=== PATIENT | female | born 1960 | race Caucasian/White ===

== ENCOUNTER → 2017-01-27 | Outpatient (REF) | payer OTHER | LOC: M LAB REF 12:32 | PROVIDERS: ATTEND Nurse Practitioner Adult Health | DX: L03.011 Cellulitis of right finger (principal) ==

== ENCOUNTER → 2017-05-19 | Outpatient (CLI) | payer BC, OTHER ==
[2017-05-19 14:23] LABS: BASO # 0.1 10^3/uL (0.0-0.2); BASO % 1.3 % (0.0-1.0); EOS # 0.1 10^3/uL (0.0-0.50); EOS % 1.7 % (0.0-3.0); HEMATOCRIT 45.3 % (36.0-47.0); HEMOGLOBIN 15.3 g/dl (12.0-16.0); IMMATURE GRANULOCYTE % 0.6 % (0-3.0); LYMPH # 1.6 10^3/uL (1.5-4.5); LYMPH % 33.5 % (24.0-44.0); MEAN CORPUSCULAR HEMOGLOBIN 30.5 pg (27.0-33.0); MEAN CORPUSCULAR HGB CONC 33.8 g/dl (32.0-36.5); MEAN CORPUSCULAR VOLUME 90.4 fl (80.0-96.0); MONO # 0.7 10^3/uL (0.0-0.8); MONO % 14.2 % (0.0-5.0); NEUTROPHILS # 2.3 10^3/uL (1.8-7.7); NEUTROPHILS % 48.7 % (36.0-66.0); PLATELET COUNT, AUTOMATED 265 10^3/uL (150-450); RED BLOOD COUNT 5.01 10^6/uL (4.00-5.40); RED CELL DISTRIBUTION WIDTH 12.4 % (11.5-14.5); WHITE BLOOD COUNT 4.7 10^3/uL (4.0-10.0)
== END ==
LOC: M WUC 09:34
DX: J20.9 Acute bronchitis, unspecified (principal); R50.9 Fever, unspecified
CPT/HCPCS: 85025

== ENCOUNTER → 2017-12-04 | Outpatient (REF) | payer OTHER ==
[2017-12-04 18:33] LABS: BACTERIA, URINE AUTO NEGATIVE (NEGATIVE); MUCUS, URINE SMALL (NEGATIVE); RBC, URINE AUTO 7 /HPF (0-3); SQUAMOUS EPITHELIAL CELL UR AU 5 /HPF (0-6); WBC, URINE AUTO 7 /HPF (0-3)
== END ==
LOC: M LAB REF 17:04
DX: R31.9 Hematuria, unspecified (principal)

== ENCOUNTER → 2018-08-12 | Outpatient (REF) | payer OTHER ==
[2018-08-12 13:50] LABS: HIV 1&2 SCREEN CENTAUR NEGATIVE (NEGATIVE)
== END ==
LOC: M LAB REF 12:28
PROVIDERS: ATTEND Internal Medicine
DX: Z77.21 Contact with and (suspected) exposure to potentially hazardous body fluids (principal)

== ENCOUNTER → 2019-08-04 | Outpatient (REF) | payer OTHER | LOC: M WUC 10:18 | PROVIDERS: ATTEND Nurse Practitioner Family | DX: Z20.828 Contact with and (suspected) exposure to other viral communicable diseases (principal) | CPT/HCPCS: 87486; 87581; 87633; 87798; U0002 ==

== ENCOUNTER → 2020-04-30 | Outpatient (REF) | payer BC, OTHER | LOC: M LAB REF 13:13 → M WUC 13:13 | PROVIDERS: ATTEND Physician Assistant | DX: R50.9 Fever, unspecified (principal) ==

== ENCOUNTER → 2020-04-30 | Outpatient (CLI) | payer BC, OTHER ==
[2020-04-30 13:52] LABS: BASO % 0.9 % (0.0-1.0); EOS % 0.6 % (0.0-3.0); HEMATOCRIT 43.4 % (36.0-47.0); HEMOGLOBIN 14.2 g/dl (12.0-15.5); LYMPH # 0.7 10^3/uL (1.5-5.0); LYMPH % 15.9 % (24.0-44.0); MEAN CORPUSCULAR HGB CONC 32.7 g/dl (32.0-36.5); MEAN CORPUSCULAR VOLUME 91.8 fl (80.0-96.0); MONO # 0.6 10^3/uL (0.0-0.8); MONO % 13.5 % (2.0-8.0); NEUTROPHILS # 3.2 10^3/uL (1.5-8.5); PLATELET COUNT, AUTOMATED 221 10^3/uL (150-450); RED BLOOD COUNT 4.73 10^6/uL (4.00-5.40); WHITE BLOOD COUNT 4.7 10^3/uL (4.0-10.0)
--- NOTE | 2020-04-30 14:04 | REP ---
INDICATION: FEVER, STAT LABS 1ST THEN XR. COMPARISON: Comparison study May 19, 2017. TECHNIQUE: Two views.. FINDINGS: The lungs are well inflated and free of infiltrate. The pleural angles are sharp. The heart size is normal. Pulmonary vasculature is not increased. No significant bony abnormality is seen. IMPRESSION: Negative chest x-ray. <Electronically signed by Jhon Izquierdo > 04/30/20 1400
[2020-04-30 14:16] LABS: ALBUMIN 3.8 GM/DL (3.2-5.2); ALT/SGPT 26 U/L (12-78); BILIRUBIN,TOTAL 0.3 MG/DL (0.2-1.0); BLOOD UREA NITROGEN 12 MG/DL (7-18); CARBON DIOXIDE LEVEL 26 MEQ/L (21-32); CHLORIDE LEVEL 102 MEQ/L (98-107); CREATININE FOR GFR 0.98 MG/DL (0.55-1.30); GLOMERULAR FILTRATION RATE > 60.0 (>51); GLUCOSE, FASTING 98 MG/DL (70-100); POTASSIUM SERUM 4.3 MEQ/L (3.5-5.1); SODIUM LEVEL 134 MEQ/L (136-145); TOTAL PROTEIN 7.6 GM/DL (6.4-8.2)
== END ==
LOC: M LAB 13:29
PROVIDERS: ATTEND Physician Assistant
DX: R50.9 Fever, unspecified (principal)

== ENCOUNTER → 2021-05-15 | Outpatient (CLI) | payer BC, OTHER | LOC: M WUC 11:51 | PROVIDERS: ATTEND Internal Medicine | DX: R06.02 Shortness of breath (principal) ==

== ENCOUNTER → 2024-01-06 | Outpatient (REF) | payer BC, OTHER ==
[2024-01-06 13:26] LABS: BACTERIA, URINE AUTO 1+ (NEGATIVE); MUCUS, URINE SMALL (NEGATIVE); RBC, URINE AUTO 1 /HPF (0-3); SQUAMOUS EPITHELIAL CELL UR AU 1 /HPF (0-6); WBC, URINE AUTO 1 /HPF (0-3)
== END ==
LOC: M LAB REF 12:37
PROVIDERS: ATTEND Internal Medicine
DX: R31.9 Hematuria, unspecified (principal)

== ENCOUNTER 2025-01-03 11:12 | Day surgery (SDC) | payer BC ==
[~2025-01-03] VITALS: Ht 165.1 cm; Wt 78.9 kg
[~2025-01-03 11:12] MED LIST: BREO1INH INH; ESTR0.5T3 PO; LR 1,000 ML IV SCH; MIDAZOLAM INJ 2 MG/2 ML VIAL As Ordered ONE; SEMA1PEN2 SQ
[2025-01-03] MEDS: FLURBIPROFEN 0.03% OPHTH SOLN 2.5 ML OD SCH (12:01)
[2025-01-03] MEDS: PHENYLEPHRINE 2.5% OPHTH SOL 2ML OD SCH (12:01)
[2025-01-03] MEDS: CYCLOPENTOLATE 1% OPHTH SOLN 2 ML BTL OD SCH (12:01)
[2025-01-03] MEDS: TETRACAINE 0.5% OPHTH SOLN 4ML OD SCH (12:01)
[2025-01-03] MEDS: LIDOCAINE 1% SDV 5 ML VIAL As Ordered ONE (13:17)
[2025-01-03] MEDS: CEFUROXIME 1 MG/0.1 ML INTRACAMERAL INJ As Ordered ONE (13:18)
[2025-01-03 13:36] VITALS: BP 167/89; TEMP 97.4; O2SAT 97
== END 2025-01-03 14:10 | disposition home or self-care (01) ==
LOC: M SDC 11:12
PROVIDERS: ATTEND Ophthalmology
DX: H25.11 Age-related nuclear cataract, right eye (principal); J44.9 Chronic obstructive pulmonary disease, unspecified; Z79.51 Long term (current) use of inhaled steroids; F17.210 Nicotine dependence, cigarettes, uncomplicated
CPT/HCPCS: 66984; J0697; J2250; J3010; V2632

== ENCOUNTER 2025-03-07 10:09 | Day surgery (SDC) | payer BC ==
[~2025-03-07] VITALS: Ht 165.1 cm; Wt 78.0 kg
[~2025-03-07 10:09] MED LIST changes: +estradiol PO
[2025-03-07] MEDS: PHENYLEPHRINE 2.5% OPHTH SOL 2ML OS SCH (11:35)
[2025-03-07] MEDS: FLURBIPROFEN 0.03% OPHTH SOLN 2.5 ML OS SCH (11:35)
[2025-03-07] MEDS: CYCLOPENTOLATE 1% OPHTH SOLN 2 ML BTL OS SCH (11:35)
[2025-03-07] MEDS: TETRACAINE 0.5% OPHTH SOLN 4ML OS SCH (11:35)
[2025-03-07] MEDS: LIDOCAINE 1% SDV 5 ML VIAL As Ordered ONE (13:17)
[2025-03-07] MEDS: CEFUROXIME 1 MG/0.1 ML INTRACAMERAL INJ As Ordered ONE (13:17)
[2025-03-07 13:34] VITALS: BP 148/70; TEMP 97.6; O2SAT 97
== END 2025-03-07 14:05 | disposition home or self-care (01) ==
LOC: M SDC 10:09
PROVIDERS: ATTEND Ophthalmology
DX: H25.12 Age-related nuclear cataract, left eye (principal); J44.9 Chronic obstructive pulmonary disease, unspecified; F17.210 Nicotine dependence, cigarettes, uncomplicated; Z79.51 Long term (current) use of inhaled steroids; Z79.899 Other long term (current) drug therapy; Z79.890 Hormone replacement therapy; Z90.710 Acquired absence of both cervix and uterus; Z90.49 Acquired absence of other specified parts of digestive tract
CPT/HCPCS: 66984; J0697; J2250; J3010; V2632